=== PATIENT | male | born 1950 | race Two or more races ===

== ENCOUNTER 2017-12-06 08:10 | Outpatient (CLI) | payer OTHER | END 2017-12-06 08:16 | disposition home or self-care (01) | LOC: TOM 08:10 | DX: K64.8 Other hemorrhoids (principal); Z86.010 Personal history of colon polyps; Z85.038 Personal history of other malignant neoplasm of large intestine ==

== ENCOUNTER 2017-12-06 08:57 | Outpatient (CLI) | payer OTHER | END 2017-12-06 09:05 | disposition home or self-care (01) | LOC: LAB 08:57 | DX: Z85.038 Personal history of other malignant neoplasm of large intestine (principal) ==